=== PATIENT | male | born 2000 | race Two or more races ===

== ENCOUNTER → 2019-04-27 | Outpatient (CLI) | payer OTHER | LOC: M OUTALCOH 08:38 | PROVIDERS: ATTEND Psychiatry & Neurology Psychiatry | DX: F10.10 Alcohol abuse, uncomplicated (principal) ==

== ENCOUNTER 2019-05-23 15:52 | Outpatient (RCR) | payer OTHER | END 2019-06-04 | LOC: M OUTALCOH 15:52 | PROVIDERS: ATTEND Psychiatry & Neurology Psychiatry | DX: F10.10 Alcohol abuse, uncomplicated (principal); F17.200 Nicotine dependence, unspecified, uncomplicated | CPT/HCPCS: H0050 ×2 ==